=== PATIENT | male | born 1950 | race Caucasian/White ===

== ENCOUNTER → 2016-10-22 | Outpatient (CLI) | payer MEDICARE, OTHER ==
[~2016-10-22] MED LIST: ASPIRIN 325MG325 MG PO; ATROVENT INH S2.5 ML INH; FLEXERIL 10 MG10 MG PO; FOLIC ACID 1 MG1 MG PO; MULTI-VITAMIN1 EACH PO; PHENERGAN 25 MG25 M1 PO; PLAVIX 75 MG TA75 MG PO; PREDNISONE20 MG PO; PROTONIX40 MG PO; REFRESH PLUS1 EACH OP; VENTOLIN/PROVE0.5 ML INH; XALKORI250 MG PO; ZOFRAN4 MG PO; ZYVOX600 MG PO
== END ==
LOC: CT 07:39
DX: C44.321 Squamous cell carcinoma of skin of nose (principal); C78.01 Secondary malignant neoplasm of right lung; C78.02 Secondary malignant neoplasm of left lung; Z85.828 Personal history of other malignant neoplasm of skin; R91.8 Other nonspecific abnormal finding of lung field; K80.20 Calculus of gallbladder without cholecystitis without obstruction; R90.82 White matter disease, unspecified
CPT/HCPCS: 70460; 70491; 71260; J7050; Q9962